=== PATIENT | male | born 1965 | race Caucasian/White ===

== ENCOUNTER 2018-12-12 08:39 | Emergency (ER) | payer OTHER | END 2018-12-12 12:08 | disposition home or self-care (01) | LOC: FTE 12:08 | DX: S90.421A Blister (nonthermal), right great toe, initial encounter (principal); E11.9 Type 2 diabetes mellitus without complications; X58.XXXA Exposure to other specified factors, initial encounter; Y92.9 Unspecified place or not applicable | CPT/HCPCS: 10060; 82962; 99282-25 ==